=== PATIENT | female | born 1945 | race Caucasian/White ===

== ENCOUNTER → 2024-09-04 12:54 | Outpatient (BNVA) | payer MEDICARE, OTHER, SELFPAY | PROVIDERS: Referring Provider Nurse Practitioner Family; Visit Provider Nurse Practitioner Family | DX: L82.1 Other seborrheic keratosis (principal); D22.5 Melanocytic nevi of trunk; L81.4 Other melanin hyperpigmentation; L60.3 Nail dystrophy; L57.8 Other skin changes due to chronic exposure to nonionizing radiation; L57.0 Actinic keratosis | CPT/HCPCS: 17000; 99203 ==

== ENCOUNTER → 2025-08-07 14:32 | Outpatient (BNVA) | payer MEDICARE, OTHER, SELFPAY | PROVIDERS: Visit Provider Nurse Practitioner Family | DX: L60.3 Nail dystrophy (principal); L82.1 Other seborrheic keratosis; D18.01 Hemangioma of skin and subcutaneous tissue; L57.8 Other skin changes due to chronic exposure to nonionizing radiation; L57.0 Actinic keratosis | CPT/HCPCS: 17000; 99213 ==